=== PATIENT | female | born 1995 | race Caucasian/White ===

== ENCOUNTER → 2018-12-09 | Outpatient (CLI) | payer OTHER ==
--- NOTE | 2018-12-09 16:09 | Diagnostic Imaging Report ---
TECHNIQUE: Computed tomography imaging of the RIGHT foot was performed WITHOUT injected contrast. Dose modulation, iterative reconstruction, and/or weight based adjustment of the mA/kV was utilized to reduce the radiation dose to as low as reasonably achievable. HISTORY: Pain COMPARISON: None available. DISCUSSION: Nondisplaced fracture of the fifth metatarsal base tuberosity. Adjacent soft tissue swelling. No fluid collection. Tendons are in normal position. No significant joint effusions. IMPRESSION: Nondisplaced fracture of the base of the fifth metatarsal tuberosity. Signed by: Dr. Jeff Hallman M.D. on 12/09/2018 4:06 PM
== END ==
LOC: CT 14:44
PROVIDERS: ATTEND Family Medicine
DX: S93.601A Unspecified sprain of right foot, initial encounter (principal)